=== PATIENT | male | born 1980 | race Hispanic/Latino ===

== ENCOUNTER 2018-04-19 16:54 | Emergency (ER) | payer SELFPAY ==
[2018-04-19] MEDS ORDERED: ONDANSETRON INJ 4 MG/2 ML VIAL IV ONE (17:12)
--- NOTE | 2018-04-19 17:15 | ED.PDOC ---
History of Present Illness - General Chief Complaint: Abdominal Pain Stated Complaint: abdominal pain and vomiting Time Seen by Provider: 04/19/18 17:07 Source: patient Exam Limitations: no limitations - History of Present Illness Initial Comments: Patient presents with N/V x 5 over the past 2 hours. Sudden onset. He also has generalized abdominal pain that is aching in nature. Pain is worse with movement and better with rest. Denies diarrhea. No similarly sick contacts. No other complaints. Timing/Duration: 1-3 hours Severity: moderate Improving Factors: nothing Worsening Factors: nothing Associated Symptoms: other - as in HPI Allergies/Adverse Reactions: Allergies NO KNOWN ALLERGY Allergy (Verified 04/19/18 17:09) Home Medications: Ambulatory Orders Ondansetron HCl [Zofran] 4 mg PO Q4HR #7 tab 04/19/18 Review of Systems - Review of Systems Constitutional: States: no symptoms reported EENTM: States: no symptoms reported Respiratory: States: no symptoms reported Cardiology: States: no symptoms reported Gastrointestinal/Abdominal: States: see HPI Genitourinary: States: no symptoms reported Musculoskeletal: States: no symptoms reported Skin: States: no symptoms reported Neurological: States: no symptoms reported Endocrine: States: no symptoms reported Hematologic/Lymphatic: States: no symptoms reported Past Medical History (General) - Patient Medical History Hx Asthma: No Hx of COPD: No Hx Cardiac Disorders: No Hx Hypertension: No Hx Thyroid Disease: No Hx Diabetes: No Hx Gastroesophageal Reflux: No Surgical History: no surgical history - Vaccination History Hx Influenza Vaccination: No Hx Pneumococcal Vaccination: No - Social History Hx Tobacco Use: No Hx Alcohol Use: No Family Medical History - Family History Mother Family History: Unknown Physical Exam - Physical Exam General Appearance: Alert Eye Exam: bilateral normal Ears, Nose, Throat: normal ENT inspection Neck: non-tender, full range of motion, supple Respiratory: lungs clear, normal breath sounds Cardiovascular/Chest: normal peripheral pulses, regular rate, rhythm, no edema Gastrointestinal/Abdominal: normal bowel sounds, soft, tenderness - Mild TTP in all quadrants Back Exam: normal inspection, no CVA tenderness Extremity: normal range of motion, normal inspection Neurologic: no motor/sensory deficits, alert, normal mood/affect, oriented x 3 Skin Exam: normal color Lymphatic: no adenopathy Progress - Progress Progress: 04/19/18 19:39 Laboratory Tests 04/19/18 04/19/18 04/19/18 17:30 17:30 17:45 WBC 12.9 H RBC 5.57 Hgb 16.4 Hct 49.2 MCV 88.3 MCH 29.4 MCHC 33.3 RDW 13.1 Plt Count 206 MPV 9.1 Absolute Neuts (auto) 10.80 H Absolute Lymphs (auto) 1.40 Absolute Monos (auto) 0.50 Absolute Eos (auto) 0.10 Absolute Basos (auto) 0.00 Neutrophils % 83.5 H Lymphocytes % 11.1 L Monocytes % 4.2 Eosinophils % 0.8 L Basophils % 0.4 Sodium 140 Potassium 3.6 Chloride 103 Carbon Dioxide 25 Anion Gap 15.6 BUN 26 H Creatinine 0.99 BUN/Creatinine Ratio 26.3 H Random Glucose 136 H Serum Osmolality 286.2 Calcium 9.3 Total Bilirubin 0.5 AST 56 H ALT 84 H Alkaline Phosphatase 66 Serum Total Protein 8.1 Albumin 4.8 Globulin 3.3 Albumin/Globulin Ratio 1.5 Lipase 30 Urine Color Yellow Urine Appearance Sl cloudy Urine pH 6.5 Ur Specific [place] >= 1.030 Urine Protein 30 Urine Glucose (UA) Negative Urine Ketones Trace Urine Blood Trace-intact H Urine Nitrite Negative Urine Bilirubin Negative Urine Urobilinogen 0.2 Ur Leukocyte Esterase Negative Urine RBC 0-1 Urine WBC 0 Ur Epithelial Cells 0 Urine Bacteria 0 Urine Mucus Small Patient's symptoms improved significantly with zofran and NS one liter IV bolus. He was given an RX for Zofran. Care instructions given. E.R. warnings given. Questions were elicited and answered. The patient voiced understanding and agreement with the plan. Departure - Departure Clinical Impression: Gastroenteritis Disposition: Discharge to Home or Self Care Departure Forms: ED Discharge - Pt. Copy, Patient Portal Self Enrollment Instructions: DI for Abdominal Pain-Adult Diet: resume usual diet, other - Mas fluidos. Activity: increase activity as tolerated Prescriptions: Ondansetron HCl [Zofran] 4 mg PO Q4HR #7 tab Home Medications: Ambulatory Orders Ondansetron HCl [Zofran] 4 mg PO Q4HR #7 tab 04/19/18 Additional Instructions: Necesita beber mas fluidos. Kirk las pastillas cada 4 horas si tiene nausea. Regresa al hospital si todavia tenga syntomas en 24 horas.
[2018-04-19] MEDS ORDERED: MORPHINE SULFATE INJ 10 MG/ML VIAL IV ONE (17:37)
[2018-04-19] MEDS ORDERED: SODIUM CHLORIDE 0.9% 1000ML 1,000 ML IVS ONE (18:09)
--- NOTE | 2018-04-19 19:26 | CT ---
PROCEDURE: Abdomen/Pelvis w/Contrast HISTORY: abdominal pain Indication: Same as above Comparison: None . Technique: CT of the abdomen and pelvis was done with intravenous contrast. Images were obtained from the lung base to the level of the pubic symphysis in axial plane, followed by orthogonal sagittal and coronal reconstruction. Oral contrast was not given for the study. The patient was injected with radiographic contrast intravenously, without any documented immediate adverse reactions. This exam was performed according to our departmental dose-optimization program, which includes automated exposure control, adjustment of the mA and/or KV according to the patient's size and/or use of iterative reconstruction technique. FINDINGS: Images through the lung bases do not show any focal infiltrates or pleural effusions. The liver, gallbladder, pancreas, spleen and the bilateral adrenal glands appear unremarkable. The bilateral kidneys enhance with contrast in a normal fashion. The urinary bladder is unremarkable . The bilateral ureters and the bilateral periureteral soft tissues and fat planes are unremarkable. The small bowel appears unremarkable, without any evidence of small bowel obstruction or bowel wall thickening. There is no CT evidence of acute appendicitis, pericecal inflammatory change or ileocecal mesenteric adenitis. The ileocecal junction appears unremarkable. There is no CT evidence of acute colonic diverticulitis or colitis or large bowel obstruction. The splenic and portal veins are of normal caliber, without any filling defects. There is no pathological lymphadenopathy in the retroperitoneum or in the pelvic region. There is no evidence of free fluid or free air in the abdomen or the pelvic region. There is no clinically significant abdominal aortic aneurysm. There is a tiny fat-containing periumbilical ventral hernia The visualized lumbar spine shows mild multilevel degenerative change . The paravertebral soft tissues are unremarkable. The remainder of the pelvic structures are unremarkable. IMPRESSION: There are no acute or significant findings on the current study. Location of Interpretation: [facility] Electronically signed by: Masood Roland MD 04/19/2018 7:25 PM [employer] Workstation: [id number]
[2018-04-19 19:33] VITALS: TEMP 100.4
[2018-04-19] MEDS ORDERED: ONDANSETRON ODT (ER DISP) 8 MG TAB PO ONE (19:39)
[2018-04-19 20:14] VITALS: BP 139/91; O2SAT 97
== END 2018-04-19 20:17 | disposition home or self-care (01) ==
LOC: ER 16:54
DX: K52.9 Noninfective gastroenteritis and colitis, unspecified (principal)
CPT/HCPCS: 36415; 74177; 80053; 81001; 83690; 85025; 87502; J2270; J2405; J7030